=== PATIENT | female | born 1970 | race African-American/Black ===

== ENCOUNTER 2016-07-05 21:26 | Observation (INO) | payer OTHER ==
[~2016-07-05] VITALS: Ht 172.7 cm; Wt 115.8 kg
[~2016-07-05 21:26] MED LIST: AMLODIPINE BESY10 MG PO; AMLODIPINE BESYL5 MG PO; AMOXICILLIN500 MG PO; ANTIVERT25 MG PO; ASPIR-LOW81 MG PO; ASPIRIN325 MG PO; BACLOFEN10 MG PO; BACTRIM,SEPT1 TABLET PO; DOCUSATE SODIU100 MG PO; ENDOCET 5-3251 EACH PO; HYDROCHLOROTHIA25 MG PO; LO-DOSE ASPIRIN81 M2 PO; LOPRESSOR25 MG PO; LORTAB 5-325 M1 EACH PO; LYRICA75 MG PO; MEDROL DOSEPAK4 MG PO; METOPROLOL SUCC50 MG PO; METOPROLOL TART25 MG PO; MOTRIN600 MG PO; NAPROXEN500 MG PO; NEXIUM 24HR20 MG PO; NORVASC5 MG PO; OXYCODONE HCL5 MG PO; PERCOCET 5/31 TABLET PO; ROXICODONE5 MG PO; TOPROL XL25 MG PO; TYLENOL EXTRA500 MG PO; ULTRAM50 MG PO; VALIUM5 MG PO; VALSARTAN160 MG PO
[2016-07-05 21:57] LABS: HEMATOCRIT 37.3 % (36.0-46.0); MCH 28.5 PG (29.0-34.0); MCV 83.6 FL (83-99); MEAN PLAT.VOLUME 10.8 uM^3 (9.5-12.4); PLATELET COUNT 221 K/uL (156-360); RBC DIS.WIDTH-CV 14.5 % (11.8-14.6); RBC DIS.WIDTH-SD 43.4 % (39-53); RED BLOOD COUNT 4.46 M/uL (3.80-5.20); WHITE BLOOD COUNT 7.8 K/uL (4.1-10.2)
[2016-07-05 22:06] LABS: CHLORIDE 109 mEq/L (99-109); SODIUM 140 mEq/L (136-147)
[2016-07-05 22:07] LABS: GLUCOSE 102 mg/dL (70-99)
[2016-07-05 22:09] LABS: ANION GAP 14 MEQ/L (2-14)
[2016-07-05 22:11] LABS: GFR ESTIMATE (CALCULATED) > 59 mL/min/
[2016-07-05 22:12] LABS: UREA NITROGEN (BUN) 12 mg/dL (9-23)
[2016-07-05 22:19] LABS: TROP-I INTERPRETATION NEGATIVE; TROPONIN-I < 0.01 ng/mL (0.0-0.30)
[2016-07-05 23:53] LABS: TOTAL BILIRUBIN 0.5 mg/dL (0.0-1.0)
[2016-07-05 23:54] LABS: ALKALINE PHOSPHATASE 74 IU/L (3-129)
[2016-07-05 23:54] LABS: D-DIMER ELISA 0.54 mg/L FEU (< 0.57)
[2016-07-05 23:57] LABS: DIRECT BILIRUBIN 0.2 mg/dL (0.0-0.3)
[2016-07-05 23:58] LABS: LIPASE 31 U/L (1.0-51.0)
[2016-07-06] MEDS ORDERED: ADVIL200 MG PO (00:26)
[2016-07-06 07:15] LABS: HEMATOCRIT 33.7 % (36.0-46.0); MCH 28.5 PG (29.0-34.0); MCHC 34.1 G/DL (30.0-36.0); MCV 83.4 FL (83-99); MEAN PLAT.VOLUME 10.2 uM^3 (9.5-12.4); PLATELET COUNT 215 K/uL (156-360); RBC DIS.WIDTH-CV 14.6 % (11.8-14.6); RED BLOOD COUNT 4.04 M/uL (3.80-5.20); WHITE BLOOD COUNT 7.3 K/uL (4.1-10.2)
[2016-07-06 07:25] LABS: CHLORIDE 112 mEq/L (99-109); POTASSIUM 3.8 mEq/L (3.7-5.4); SODIUM 143 mEq/L (136-147)
[2016-07-06 07:28] LABS: ANION GAP 11 MEQ/L (2-14)
[2016-07-06 07:30] LABS: ALKALINE PHOSPHATASE 60 IU/L (3-129); GLUCOSE 166 mg/dL (70-99); TOTAL BILIRUBIN 0.3 mg/dL (0.0-1.0)
[2016-07-06 07:31] LABS: GFR ESTIMATE (CALCULATED) > 59 mL/min/
[2016-07-06 07:32] LABS: UREA NITROGEN (BUN) 14 mg/dL (9-23)
[2016-07-06 07:35] LABS: TROP-I INTERPRETATION NEGATIVE; TROPONIN-I 0.01 ng/mL (0.0-0.30)
[2016-07-06 15:45] VITALS: BP 178/103
[2016-07-06 20:42] VITALS: BP 175/95
[2016-07-07 00:25] VITALS: BP 165/76
[2016-07-07 04:00] VITALS: BP 153/77
[2016-07-07 06:29] LABS: HDL CHOLESTEROL 51 MG/DL (Desirable>=50); LDL CHOLESTEROL 114 mg/dL (Desirable<100); NON-HDL CHOLESTEROL 124 mg/dL (Desirable<160); TOTAL CHOLESTEROL 175 mg/dL (Desirable<200); TRIGLYCERIDES 50 MG/DL (Normal: <150)
[2016-07-07 06:45] LABS: TROP-I INTERPRETATION NEGATIVE; TROPONIN-I < 0.01 ng/mL (0.0-0.30)
[2016-07-07 07:58] VITALS: BP 161/81
[2016-07-07 12:01] VITALS: BP 174/95
[2016-07-07 12:48] LABS: TROP-I INTERPRETATION NEGATIVE; TROPONIN-I < 0.01 ng/mL (0.0-0.30)
[2016-07-07 22:08] VITALS: BP 137/71
[2016-07-07 23:11] VITALS: BP 137/71; BP 164/89
[2016-07-08 03:20] VITALS: BP 129/67
[2016-07-08 09:15] VITALS: BP 128/75
[2016-07-08 11:30] VITALS: BP 146/71
[2016-07-08] MEDS ORDERED: PROTONIX40 MG PO (11:37)
[2016-07-08] MEDS ORDERED: TYLENOL REGULA325 MG PO (11:40)
[2016-07-08] MEDS ORDERED: METOPROLOL TART75 MG PO (11:40)
[2016-07-08] MEDS ORDERED: NICOTINE PATCH1 EAC2 TD (11:40)
[2016-07-08] MEDS ORDERED: ASPIR-LOW81 MG PO (11:40)
== END 2016-07-08 18:20 | disposition home or self-care (01) ==
LOC: EME 21:26 → EDOF 07-06 00:23 → 5WEST 07-06 00:23 → 4EAST 07-07 21:37
PROVIDERS: Internal Medicine; Nurse Practitioner Adult Health; Physician Assistant Medical
DX: R07.9 Chest pain, unspecified (principal); R94.31 Abnormal electrocardiogram [ECG] [EKG]; I10 Essential (primary) hypertension; F17.200 Nicotine dependence, unspecified, uncomplicated; Z86.73 Personal history of transient ischemic attack (TIA), and cerebral infarction without residual deficits; K21.9 Gastro-esophageal reflux disease without esophagitis; K80.20 Calculus of gallbladder without cholecystitis without obstruction; G43.909 Migraine, unspecified, not intractable, without status migrainosus; M51.36 Other intervertebral disc degeneration, lumbar region; M50.30 Other cervical disc degeneration, unspecified cervical region; G89.29 Other chronic pain; Z82.3 Family history of stroke; Z88.5 Allergy status to narcotic agent; Z88.8 Allergy status to other drugs, medicaments and biological substances; Z91.018 Allergy to other foods
CPT/HCPCS: 71020; 71275; 80048; 80053; 80061; 80076; 83690; 84484; 85027; 85379; 93005; 94799; 99281; 99285; C1769; C1887; G0378; J0360; J1200; J1644; J1885; J2250; J2765; J2930; J3010; J7030; J7040; J7050; S0028

== ENCOUNTER 2016-09-06 20:27 | Emergency (ER) | payer OTHER ==
[~2016-09-06] VITALS: Ht 172.7 cm; Wt 117.6 kg
[~2016-09-06 20:27] MED LIST changes: +ADVIL200 MG PO; +METOPROLOL TART75 MG PO; +NICOTINE PATCH1 EAC2 TD; +PROTONIX40 MG PO; +TYLENOL REGULA325 MG PO
[2016-09-06 21:02] LABS: HEMATOCRIT 36.8 % (36.0-46.0); MCH 27.8 PG (29.0-34.0); MCHC 32.6 G/DL (30.0-36.0); MCV 85.2 FL (83-99); MEAN PLAT.VOLUME 10.4 uM^3 (9.5-12.4); PLATELET COUNT 225 K/uL (156-360); RBC DIS.WIDTH-CV 14.6 % (11.8-14.6); RED BLOOD COUNT 4.32 M/uL (3.80-5.20); WHITE BLOOD COUNT 7.9 K/uL (4.1-10.2)
[2016-09-06 21:10] LABS: CHLORIDE 112 mEq/L (99-109); POTASSIUM 3.7 mEq/L (3.7-5.4); SODIUM 141 mEq/L (136-147)
[2016-09-06 21:13] LABS: GLUCOSE 106 mg/dL (70-99)
[2016-09-06 21:14] LABS: ANION GAP 11 MEQ/L (2-14)
[2016-09-06 21:15] LABS: TOTAL BILIRUBIN 0.3 mg/dL (0.0-1.0)
[2016-09-06 21:16] LABS: ALKALINE PHOSPHATASE 63 IU/L (3-129); GFR ESTIMATE (CALCULATED) > 59 mL/min/
[2016-09-06 21:18] LABS: UREA NITROGEN (BUN) 16 mg/dL (9-23)
[2016-09-06 21:26] LABS: QUANTITATIVE HCG < 4.0 MIU/ML
[2016-09-06 22:35] LABS: ADD MIUA? YES; BILIRUBIN NEGATIVE; BLOOD NEGATIVE; COLOR YELLOW ((YELLOW)); GLUCOSE (STRIP) NEGATIVE; KETONES NEGATIVE; LEUKOCYTES NEGATIVE; NITRITE NEGATIVE; PROTEIN (STRIP) 30; SPECIFIC GRAVITY 1.016 (1.000-1.030); UROBILINOGEN 0.2 MG/DL (0.2-1.0)
[2016-09-06 22:43] LABS: BACTERIA NONE SEEN /HPF; EPITHELIAL CELLS 2+ /HPF; MUCUS TRACE /LPF; RED BLOOD CELLS 0-5 /HPF (0-5); UCUL ADDED? NO; WHITE BLOOD CELLS 0-5 /HPF (0-5)
[2016-09-06] MEDS ORDERED: PERCOCET 5/31 TABLET PO (23:38)
[2016-09-07 00:52] VITALS: BP 189/99
== END 2016-09-07 00:54 | disposition home or self-care (01) ==
LOC: EME → EDBD 20:27 → EME 20:27
DX: R10.30 Lower abdominal pain, unspecified (principal); I10 Essential (primary) hypertension; Z87.442 Personal history of urinary calculi; K21.9 Gastro-esophageal reflux disease without esophagitis; Z86.73 Personal history of transient ischemic attack (TIA), and cerebral infarction without residual deficits; F17.200 Nicotine dependence, unspecified, uncomplicated
CPT/HCPCS: 74177; 80053; 81003; 84702; 85027; 99281; 99285; J1885

== ENCOUNTER 2016-10-08 12:08 | Observation (INO) | payer OTHER ==
[~2016-10-08] VITALS: Ht 172.7 cm; Wt 118.4 kg
[2016-10-08 14:27] LABS: HEMATOCRIT 39.8 % (36.0-46.0); MCH 27.4 PG (29.0-34.0); MCHC 31.9 G/DL (30.0-36.0); MEAN PLAT.VOLUME 10.8 uM^3 (9.5-12.4); PLATELET COUNT 223 K/uL (156-360); RBC DIS.WIDTH-CV 14.9 % (11.8-14.6); RBC DIS.WIDTH-SD 46.5 % (39-53); RED BLOOD COUNT 4.63 M/uL (3.80-5.20); WHITE BLOOD COUNT 8.9 K/uL (4.1-10.2)
[2016-10-08 14:33] LABS: CHLORIDE 109 mEq/L (99-109); POTASSIUM 4.1 mEq/L (3.7-5.4); SODIUM 140 mEq/L (136-147)
[2016-10-08 14:36] LABS: GLUCOSE 90 mg/dL (70-99)
[2016-10-08 14:37] LABS: ANION GAP 10 MEQ/L (2-14)
[2016-10-08 14:38] LABS: TOTAL BILIRUBIN 0.4 mg/dL (0.0-1.0)
[2016-10-08 14:39] LABS: ALKALINE PHOSPHATASE 62 IU/L (3-129); GFR ESTIMATE (CALCULATED) > 59 mL/min/
[2016-10-08 14:40] LABS: UREA NITROGEN (BUN) 10 mg/dL (9-23)
[2016-10-08 14:46] LABS: TROP-I INTERPRETATION NEGATIVE; TROPONIN-I < 0.01 ng/mL (0.0-0.30)
[2016-10-08] MEDS ORDERED: METOPROLOL SUC100 MG PO (15:59)
[2016-10-08] MEDS ORDERED: LO-DOSE ASPIRIN81 M2 PO (15:59)
[2016-10-08] MEDS ORDERED: PANTOPRAZOLE SO40 MG PO (16:00)
[2016-10-08 18:03] LABS: ADD MIUA? NO; BILIRUBIN NEGATIVE; BLOOD NEGATIVE; COLOR STRAW ((YELLOW)); GLUCOSE (STRIP) NEGATIVE; KETONES NEGATIVE; LEUKOCYTES NEGATIVE; NITRITE NEGATIVE; PROTEIN (STRIP) NEGATIVE; SPECIFIC GRAVITY 1.013 (1.000-1.030); UROBILINOGEN 0.2 MG/DL (0.2-1.0)
[2016-10-08 19:37] VITALS: BP 162/82
[2016-10-08 20:47] LABS: TROP-I INTERPRETATION NEGATIVE; TROPONIN-I < 0.01 ng/mL (0.0-0.30)
[2016-10-09 00:05] VITALS: BP 128/72
[2016-10-09 02:35] LABS: TROP-I INTERPRETATION NEGATIVE; TROPONIN-I < 0.01 ng/mL (0.0-0.30)
[2016-10-09 04:00] VITALS: BP 144/83
[2016-10-09 10:19] VITALS: BP 128/68
[2016-10-09] MEDS ORDERED: AMLODIPINE BESY10 MG PO (12:00)
[2016-10-09] MEDS ORDERED: VALSARTAN160 MG PO (12:00)
[2016-10-09] MEDS ORDERED: HYDROCHLOROTHIA25 MG PO (12:00)
[2016-10-09] MEDS ORDERED: METOPROLOL SUC100 MG PO (12:00)
[2016-10-09] MEDS ORDERED: LO-DOSE ASPIRIN81 M2 PO (12:00)
[2016-10-09] MEDS ORDERED: PANTOPRAZOLE SO40 MG PO (12:00)
== END 2016-10-09 14:55 | disposition home or self-care (01) ==
LOC: EME 12:08 → 5WEST 17:14 → EDOF 17:14 → 5WEST 19:30
PROVIDERS: Internal Medicine; Nurse Practitioner Family
DX: I16.0 Hypertensive urgency (principal); I10 Essential (primary) hypertension; G89.29 Other chronic pain; G43.909 Migraine, unspecified, not intractable, without status migrainosus; K21.9 Gastro-esophageal reflux disease without esophagitis; F17.200 Nicotine dependence, unspecified, uncomplicated; Z91.14 Patient's other noncompliance with medication regimen; F32.9 Major depressive disorder, single episode, unspecified
CPT/HCPCS: 70450; 80053; 81003; 84484; 85027; 93005; 99281; 99285; G0378; J1650; J1885; J7030

== ENCOUNTER 2016-11-09 20:44 | Observation (INO) | payer OTHER ==
[~2016-11-09] VITALS: Ht 172.7 cm; Wt 116.8 kg
[~2016-11-09 20:44] MED LIST changes: +METOPROLOL SUC100 MG PO; +PANTOPRAZOLE SO40 MG PO
[2016-11-09 22:10] LABS: HEMATOCRIT 41.6 % (36.0-46.0); MCH 27.8 PG (29.0-34.0); MCHC 32.7 G/DL (30.0-36.0); MCV 84.9 FL (83-99); MEAN PLAT.VOLUME 11.5 uM^3 (9.5-12.4); PLATELET COUNT 227 K/uL (156-360); RBC DIS.WIDTH-CV 14.7 % (11.8-14.6); RBC DIS.WIDTH-SD 45.9 % (39-53); WHITE BLOOD COUNT 8.9 K/uL (4.1-10.2)
[2016-11-09 22:15] LABS: CHLORIDE 104 mEq/L (99-109); POTASSIUM 3.8 mEq/L (3.7-5.4); SODIUM 134 mEq/L (136-147)
[2016-11-09 22:17] LABS: GLUCOSE 87 mg/dL (70-99)
[2016-11-09 22:19] LABS: ANION GAP 11 MEQ/L (2-14); TOTAL BILIRUBIN 0.3 mg/dL (0.0-1.0)
[2016-11-09 22:21] LABS: ALKALINE PHOSPHATASE 60 IU/L (3-129); GFR ESTIMATE (CALCULATED) > 59 mL/min/
[2016-11-09 22:22] LABS: UREA NITROGEN (BUN) 20 mg/dL (9-23)
[2016-11-09 22:35] LABS: QUANTITATIVE HCG < 4.0 MIU/ML
[2016-11-10 00:30] LABS: LIPASE 54 U/L (1.0-51.0)
[2016-11-10 00:50] LABS: BILIRUBIN NEGATIVE; BLOOD NEGATIVE; COLOR YELLOW ((YELLOW)); GLUCOSE (STRIP) NEGATIVE; KETONES NEGATIVE; LEUKOCYTES NEGATIVE; NITRITE NEGATIVE; PROTEIN (STRIP) NEGATIVE; UROBILINOGEN 0.2 MG/DL (0.2-1.0)
[2016-11-10 01:20] LABS: ADD MIUA? NO; UCUL ADDED? NO
[2016-11-10] MEDS ORDERED: PHENERGAN25 MG PR (01:34)
[2016-11-10] MEDS ORDERED: BENTYL20 MG PO (01:34)
[2016-11-10] MEDS ORDERED: ANTIVERT25 MG PO (01:34)
[2016-11-10] MEDS ORDERED: PROMETHAZINE HC25 M1 PO (01:34)
[2016-11-10 04:18] LABS: TROP-I INTERPRETATION NEGATIVE; TROPONIN-I < 0.01 ng/mL (0.0-0.30)
[2016-11-10 08:48] VITALS: BP 118/56
[2016-11-10 12:22] VITALS: BP 139/78
[2016-11-10] MEDS ORDERED: PROTONIX40 MG PO (15:26)
[2016-11-10] MEDS ORDERED: BIOTIN PLUS KE1 EACH PO (15:27)
[2016-11-10] MEDS ORDERED: LEXAPRO10 MG PO (15:27)
[2016-11-10] MEDS ORDERED: VITAMIN E400 UNIT PO (15:27)
[2016-11-10 15:41] VITALS: BP 158/87
[2016-11-10 20:04] VITALS: BP 147/83
[2016-11-11 00:01] VITALS: BP 116/54
[2016-11-11 04:00] VITALS: BP 136/61
[2016-11-11 08:01] VITALS: BP 155/80
[2016-11-11 11:27] VITALS: BP 140/76
[2016-11-11 15:56] VITALS: BP 134/71
[2016-11-11 19:55] VITALS: BP 144/70
[2016-11-12] VITALS: BP 165/76
[2016-11-12 03:41] VITALS: BP 149/75
[2016-11-12 07:24] VITALS: BP 142/73
[2016-11-12 11:10] VITALS: BP 130/66
[2016-11-12 15:07] VITALS: BP 133/62
[2016-11-12 19:42] VITALS: BP 150/88
[2016-11-13] VITALS (7 sets, daily range): BP systolic 127–167; BP diastolic 64–94
[2016-11-13] MEDS ORDERED: ANTIVERT12.5 MG PO (19:00)
[2016-11-13] MEDS ORDERED: DEXAMETHASONE1 MG PO (19:00)
[2016-11-13] MEDS ORDERED: ONDANSETRON HCL4 MG PO (19:02)
[2016-11-14 04:00] VITALS: BP 133/71
[2016-11-14 07:56] VITALS: BP 144/84
[2016-11-15] MEDS ORDERED: VALIUM5 MG PO (16:05)
[2016-11-15] MEDS ORDERED: NORCO 5/3251 TABLET PO (16:05)
== END 2016-11-14 12:36 | disposition home or self-care (01) ==
LOC: EME 20:44 → RME 20:44 → EDOF 11-10 05:00 → 5SOUTH 11-10 05:00
PROVIDERS: Physician Assistant
DX: R42 Dizziness and giddiness (principal); H93.3X9 Disorders of unspecified acoustic nerve; E86.0 Dehydration; I10 Essential (primary) hypertension; G43.909 Migraine, unspecified, not intractable, without status migrainosus; K21.9 Gastro-esophageal reflux disease without esophagitis; E66.9 Obesity, unspecified; Z68.39 Body mass index [BMI] 39.0-39.9, adult; M54.5 Low back pain; F32.9 Major depressive disorder, single episode, unspecified
CPT/HCPCS: 70450; 70551; 80053; 81003; 83690; 84484; 84702; 85027; 93005; 97530 GP; 99281; 99285; G0378; J1100; J1650; J1885; J2405; J2550; J3360; J7030

== ENCOUNTER 2016-11-15 11:38 | Emergency (ER) | payer OTHER ==
[~2016-11-15] VITALS: Ht 172.7 cm; Wt 118.8 kg
[~2016-11-15 11:38] MED LIST changes: +ANTIVERT12.5 MG PO; +BENTYL20 MG PO; +BIOTIN PLUS KE1 EACH PO; +DEXAMETHASONE1 MG PO; +LEXAPRO10 MG PO; +ONDANSETRON HCL4 MG PO; +PHENERGAN25 MG PR; +PROMETHAZINE HC25 M1 PO; +VITAMIN E400 UNIT PO
[2016-11-15 12:28] LABS: CHLORIDE 110 mEq/L (99-109); EOSINOPHIL (%) 0.9 % (0-5); EOSINOPHIL COUNT 0.1 K/uL (0-0.3); HEMATOCRIT 40.6 % (36.0-46.0); IMMATURE GRANULOCYTE COUNT 0.1 K/uL; INSTRUMENT ABS NEUTROPHIL CT 5.9 K/uL; MCH 27.7 PG (29.0-34.0); MCHC 33.3 G/DL (30.0-36.0); MCV 83.4 FL (83-99); MEAN PLAT.VOLUME 10.5 uM^3 (9.5-12.4); MONOCYTE (%) 7.5 % (3-12); MONOCYTE COUNT 0.9 K/uL (0-0.8); NEUTROPHIL (%) 48.6 % (45-76); NEUTROPHIL COUNT 5.9 K/uL (1.8-6.4); PLATELET COUNT 232 K/uL (156-360); POTASSIUM 3.4 mEq/L (3.7-5.4); RBC DIS.WIDTH-CV 14.6 % (11.8-14.6); RBC DIS.WIDTH-SD 43.8 % (39-53); RED BLOOD COUNT 4.87 M/uL (3.80-5.20); SODIUM 140 mEq/L (136-147)
[2016-11-15 12:30] LABS: GLUCOSE 85 mg/dL (70-99)
[2016-11-15 12:32] LABS: ANION GAP 8 MEQ/L (2-14)
[2016-11-15 12:34] LABS: GFR ESTIMATE (CALCULATED) > 59 mL/min/
[2016-11-15 12:35] LABS: UREA NITROGEN (BUN) 25 mg/dL (9-23)
[2016-11-15 15:54] LABS: ADD MIUA? YES; BILIRUBIN NEGATIVE; BLOOD NEGATIVE; COLOR YELLOW ((YELLOW)); GLUCOSE (STRIP) NEGATIVE; KETONES NEGATIVE; LEUKOCYTES NEGATIVE; NITRITE NEGATIVE; PROTEIN (STRIP) NEGATIVE; SPECIFIC GRAVITY 1.018 (1.000-1.030); UROBILINOGEN 0.2 MG/DL (0.2-1.0)
[2016-11-15 15:59] LABS: BACTERIA RARE /HPF; EPITHELIAL CELLS 2+ /HPF; MUCUS TRACE /LPF; RED BLOOD CELLS 0-5 /HPF (0-5); UCUL ADDED? NO; WHITE BLOOD CELLS 0-5 /HPF (0-5)
[2016-11-15] MEDS ORDERED: NORCO 5/3251 TABLET PO (16:05)
[2016-11-15] MEDS ORDERED: VALIUM5 MG PO (16:05)
[2016-11-15 17:15] VITALS: BP 112/66
== END 2016-11-15 17:31 | disposition home or self-care (01) ==
LOC: EME 11:38
PROVIDERS: Emergency Medicine
DX: M79.605 Pain in left leg (principal); M79.604 Pain in right leg; G89.29 Other chronic pain; R42 Dizziness and giddiness; I10 Essential (primary) hypertension; K21.9 Gastro-esophageal reflux disease without esophagitis; F41.9 Anxiety disorder, unspecified; F32.9 Major depressive disorder, single episode, unspecified; Z91.81 History of falling; Z87.442 Personal history of urinary calculi; Z87.891 Personal history of nicotine dependence; Z86.73 Personal history of transient ischemic attack (TIA), and cerebral infarction without residual deficits
CPT/HCPCS: 80048; 81003; 83735; 85025; 93005; 99281; 99285; J1200; J1885; J2405; J3360; J7040

== ENCOUNTER 2017-07-29 08:21 | Emergency (ER) | payer OTHER ==
[~2017-07-29] VITALS: Ht 172.7 cm; Wt 133.4 kg
[~2017-07-29 08:21] MED LIST changes: +COLACE100 MG PO; +NORCO 5/3251 TABLET PO; +ZOFRAN ODT4 MG PO
[2017-07-29 08:53] LABS: BASOPHIL (%) 0.3 % (0-1); EOSINOPHIL (%) 1.9 % (0-5); EOSINOPHIL COUNT 0.1 K/uL (0-0.3); HEMATOCRIT 38.3 % (36.0-46.0); HEMOGLOBIN 12.6 G/DL (11.9-15.5); IMMATURE GRANULOCYTE (%) 0.1 % (0.0-0.7); LYMPHOCYTE (%) 22.2 % (15-42); LYMPHOCYTE COUNT 1.6 K/uL (1.0-2.8); MCH 28.2 PG (29.0-34.0); MCHC 32.9 G/DL (30.0-36.0); MCV 85.7 FL (83-99); MONOCYTE (%) 7.6 % (3-12); MONOCYTE COUNT 0.6 K/uL (0-0.8); NEUTROPHIL (%) 67.9 % (45-76); NEUTROPHIL COUNT 4.9 K/uL (1.8-6.4); PLATELET COUNT 202 K/uL (156-360); RBC DIS.WIDTH-CV 15.4 % (11.8-14.6); RBC DIS.WIDTH-SD 48.2 % (39-53); RED BLOOD COUNT 4.47 M/uL (3.80-5.20); WHITE BLOOD COUNT 7.2 K/uL (4.1-10.2)
[2017-07-29 09:03] LABS: CHLORIDE 109 mEq/L (99-109); POTASSIUM 3.5 mEq/L (3.7-5.4); SODIUM 139 mEq/L (136-147)
[2017-07-29 09:05] LABS: GLUCOSE 123 mg/dL (70-99)
[2017-07-29 09:09] LABS: CREATININE 0.8 mg/dL (0.6-1.3); GFR ESTIMATE (CALCULATED) > 59 mL/min/; UREA NITROGEN (BUN) 10 mg/dL (9-23)
[2017-07-29 09:58] LABS: APPEARANCE SL.HAZY ((CLEAR)); BILIRUBIN NEGATIVE; BLOOD NEGATIVE; COLOR YELLOW ((YELLOW)); GLUCOSE (STRIP) NEGATIVE; KETONES NEGATIVE; LEUKOCYTES TRACE; NITRITE NEGATIVE; PROTEIN (STRIP) 100; SPECIFIC GRAVITY 1.027 (1.000-1.030)
[2017-07-29 10:03] LABS: BACTERIA NONE SEEN /HPF; CALCIUM OXALATE CRYSTALS 1+ /HPF; EPITHELIAL CELLS 1+ /HPF; MUCUS TRACE /LPF; RED BLOOD CELLS 0-5 /HPF (0-5); UCUL ADDED? NO; WHITE BLOOD CELLS 0-5 /HPF (0-5)
[2017-07-29 10:45] VITALS: BP 176/99
== END 2017-07-29 11:02 | disposition home or self-care (01) ==
LOC: EME 08:21
PROVIDERS: Emergency Medicine
DX: R05 Cough (principal); R06.2 Wheezing; M54.5 Low back pain; R07.9 Chest pain, unspecified; Z86.73 Personal history of transient ischemic attack (TIA), and cerebral infarction without residual deficits; Z87.442 Personal history of urinary calculi; F17.200 Nicotine dependence, unspecified, uncomplicated
CPT/HCPCS: 71046; 80048; 80048 91; 81003; 85025; 87502; 99281; 99284

== ENCOUNTER 2017-09-16 18:09 | Emergency (ER) | payer OTHER ==
[~2017-09-16] VITALS: Ht 172.7 cm; Wt 129.8 kg
[2017-09-16 19:24] LABS: HEMATOCRIT 39.9 % (36.0-46.0); HEMOGLOBIN 13.3 G/DL (11.9-15.5); MCH 28.2 PG (29.0-34.0); MCHC 33.3 G/DL (30.0-36.0); MCV 84.5 FL (83-99); PLATELET COUNT 232 K/uL (156-360); RBC DIS.WIDTH-CV 14.9 % (11.8-14.6); RBC DIS.WIDTH-SD 46.5 % (39-53); RED BLOOD COUNT 4.72 M/uL (3.80-5.20); WHITE BLOOD COUNT 8.7 K/uL (4.1-10.2)
[2017-09-16 19:34] LABS: CHLORIDE 111 mEq/L (99-109); POTASSIUM 3.8 mEq/L (3.7-5.4); SODIUM 141 mEq/L (136-147)
[2017-09-16 19:36] LABS: GLUCOSE 98 mg/dL (70-99)
[2017-09-16 19:40] LABS: CREATININE 1.1 mg/dL (0.6-1.3); GFR ESTIMATE (CALCULATED) > 59 mL/min/
[2017-09-16 19:41] LABS: UREA NITROGEN (BUN) 12 mg/dL (9-23)
[2017-09-16 19:48] LABS: QUANTITATIVE HCG < 4.0 MIU/ML
[2017-09-16 22:52] LABS: APPEARANCE SL.HAZY ((CLEAR)); BILIRUBIN NEGATIVE; BLOOD SMALL; COLOR YELLOW ((YELLOW)); GLUCOSE (STRIP) NEGATIVE; KETONES NEGATIVE; LEUKOCYTES NEGATIVE; NITRITE NEGATIVE; PROTEIN (STRIP) 100; UROBILINOGEN 0.2 MG/DL (0.2-1.0)
[2017-09-16 22:57] LABS: BACTERIA NONE SEEN /HPF; CALCIUM OXALATE CRYSTALS 4+ /HPF; EPITHELIAL CELLS RARE /HPF; MUCUS TRACE /LPF; RED BLOOD CELLS 0-5 /HPF (0-5); WHITE BLOOD CELLS 0-5 /HPF (0-5)
[2017-09-16 23:59] LABS: SOURCE SWAB
[2017-09-17] MEDS ORDERED: NORCO 7.5/321 TABLET PO (00:41)
[2017-09-17] MEDS ORDERED: MOTRIN800 MG PO (00:41)
[2017-09-17 02:11] VITALS: BP 189/99
[2017-09-17 03:42] LABS: CANDIDA DNA PROBE NEGATIVE; GARDNERELLA DNA PROBE POSITIVE; TRICHOMONAS DNA PROBE NEGATIVE
[2017-09-20 12:19] LABS: STOOL OCCULT BLD 1ST SPECIMEN NEGATIVE
== END 2017-09-17 02:12 | disposition home or self-care (01) ==
LOC: EXP 18:09 → EME 18:09 → EXP 09-17 02:12
PROVIDERS: Physician Assistant
DX: N93.8 Other specified abnormal uterine and vaginal bleeding (principal); R10.2 Pelvic and perineal pain; N85.9 Noninflammatory disorder of uterus, unspecified; I10 Essential (primary) hypertension; K21.9 Gastro-esophageal reflux disease without esophagitis; M19.90 Unspecified osteoarthritis, unspecified site; F31.9 Bipolar disorder, unspecified; F17.200 Nicotine dependence, unspecified, uncomplicated; Z86.73 Personal history of transient ischemic attack (TIA), and cerebral infarction without residual deficits; Z87.442 Personal history of urinary calculi; Z90.49 Acquired absence of other specified parts of digestive tract; Z88.5 Allergy status to narcotic agent; Z88.8 Allergy status to other drugs, medicaments and biological substances; Z91.018 Allergy to other foods; J30.81 Allergic rhinitis due to animal (cat) (dog) hair and dander; J30.9 Allergic rhinitis, unspecified
CPT/HCPCS: 74176; 76856; 80048; 81003; 82272; 84702; 85027; 87480; 87491; 87510; 87591; 87660; 99281; 99284; J1885

== ENCOUNTER 2017-10-08 20:21 | Emergency (ER) | payer OTHER ==
[~2017-10-08] VITALS: Ht 172.7 cm; Wt 129.1 kg
[~2017-10-08 20:21] MED LIST changes: +MOTRIN800 MG PO; +NORCO 7.5/321 TABLET PO
[2017-10-08 20:44] LABS: HEMATOCRIT 39.3 % (36.0-46.0); HEMOGLOBIN 12.9 G/DL (11.9-15.5); MCH 28.3 PG (29.0-34.0); MCHC 32.8 G/DL (30.0-36.0); MCV 86.2 FL (83-99); PLATELET COUNT 217 K/uL (156-360); RBC DIS.WIDTH-SD 47.5 % (39-53); RED BLOOD COUNT 4.56 M/uL (3.80-5.20); WHITE BLOOD COUNT 9.1 K/uL (4.1-10.2)
[2017-10-08 20:52] LABS: CHLORIDE 107 mEq/L (99-109); POTASSIUM 3.9 mEq/L (3.7-5.4); SODIUM 139 mEq/L (136-147)
[2017-10-08 20:54] LABS: GLUCOSE 97 mg/dL (70-99)
[2017-10-08 20:58] LABS: CREATININE 1.1 mg/dL (0.6-1.3); GFR ESTIMATE (CALCULATED) > 59 mL/min/
[2017-10-08 20:59] LABS: UREA NITROGEN (BUN) 14 mg/dL (9-23)
[2017-10-08 21:04] LABS: TROP-I INTERPRETATION NEGATIVE; TROPONIN-I 0.01 ng/mL (0.0-0.30)
[2017-10-09 02:52] VITALS: BP 162/102
== END 2017-10-09 02:55 | disposition home or self-care (01) ==
LOC: EME 20:21
DX: I10 Essential (primary) hypertension (principal); Z87.442 Personal history of urinary calculi; K21.9 Gastro-esophageal reflux disease without esophagitis; F41.9 Anxiety disorder, unspecified; F32.9 Major depressive disorder, single episode, unspecified; Z86.73 Personal history of transient ischemic attack (TIA), and cerebral infarction without residual deficits; M19.90 Unspecified osteoarthritis, unspecified site; Z88.5 Allergy status to narcotic agent; F17.200 Nicotine dependence, unspecified, uncomplicated
CPT/HCPCS: 70450; 71046; 80048; 84484; 85027; 93005; 99281; 99285

== ENCOUNTER 2017-10-23 09:45 | Day surgery (SDC) | payer OTHER ==
[~2017-10-23] VITALS: Ht 172.7 cm; Wt 131.1 kg
[~2017-10-23 09:45] MED LIST changes: +ADVIL,NUPRIN,M200 MG PO; +DIOVAN160 MG PO; +NEXIUM20 MG PO; +NORVASC10 MG PO; +TOPROL XL100 MG PO
[2017-10-23 10:10] VITALS: BP 127/74
[2017-10-23 10:32] LABS: BASOPHIL (%) 0.5 % (0-1); EOSINOPHIL (%) 1.7 % (0-5); EOSINOPHIL COUNT 0.2 K/uL (0-0.3); HEMATOCRIT 41.3 % (36.0-46.0); HEMOGLOBIN 13.3 G/DL (11.9-15.5); IMMATURE GRANULOCYTE (%) 0.3 % (0.0-0.7); LYMPHOCYTE (%) 29.9 % (15-42); LYMPHOCYTE COUNT 2.6 K/uL (1.0-2.8); MCH 27.5 PG (29.0-34.0); MCHC 32.2 G/DL (30.0-36.0); MCV 85.5 FL (83-99); MONOCYTE (%) 6.4 % (3-12); MONOCYTE COUNT 0.6 K/uL (0-0.8); NEUTROPHIL (%) 61.2 % (45-76); NEUTROPHIL COUNT 5.4 K/uL (1.8-6.4); PLATELET COUNT 244 K/uL (156-360); RBC DIS.WIDTH-SD 46.8 % (39-53); RED BLOOD COUNT 4.83 M/uL (3.80-5.20); WHITE BLOOD COUNT 8.8 K/uL (4.1-10.2)
[2017-10-23 11:03] LABS: CHLORIDE 106 MEQ/L (99-109); GFR ESTIMATE (CALCULATED) > 59 mL/min/; GLUCOSE 147 mg/dL (70-99); POTASSIUM 3.9 MEQ/L (3.7-5.4); SODIUM 138 MEQ/L (136-147); UREA NITROGEN (BUN) 15 mg/dL (9-23)
[2017-10-23 11:12] LABS: PROLACTIN 15.2 NG/ML
[2017-10-23 13:14] VITALS: BP 143/73
[2017-10-23 14:02] VITALS: BP 143/78
[2017-10-23 16:01] VITALS: BP 130/60
[2017-10-23 16:40] VITALS: BP 144/70
== END 2017-10-23 16:45 | disposition home or self-care (01) ==
LOC: SDC 09:45
PROVIDERS: Obstetrics & Gynecology
DX: N93.9 Abnormal uterine and vaginal bleeding, unspecified (principal); N84.0 Polyp of corpus uteri; I10 Essential (primary) hypertension; Z86.73 Personal history of transient ischemic attack (TIA), and cerebral infarction without residual deficits; F17.200 Nicotine dependence, unspecified, uncomplicated
CPT/HCPCS: 80048; 81025; 84146; 85025; 86850; 86900; 86901; 88305; J1100; J1885; J2250; J2405; J2765; J3010; J7643

== ENCOUNTER 2018-01-29 00:20 | Emergency (ER) | payer OTHER ==
[~2018-01-29] VITALS: Ht 172.7 cm; Wt 85.2 kg
[2018-01-29 00:50] LABS: HEMATOCRIT 37.1 % (36.0-46.0); HEMOGLOBIN 12.4 G/DL (11.9-15.5); MCH 28.6 PG (29.0-34.0); MCHC 33.4 G/DL (30.0-36.0); MCV 85.5 FL (83-99); PLATELET COUNT 232 K/uL (156-360); RBC DIS.WIDTH-CV 14.9 % (11.8-14.6); RBC DIS.WIDTH-SD 46.6 % (39-53); RED BLOOD COUNT 4.34 M/uL (3.80-5.20)
[2018-01-29 01:01] LABS: ALBUMIN 3.9 g/dL (3.2-4.8)
[2018-01-29 01:02] LABS: CHLORIDE 109 mEq/L (99-109); POTASSIUM 3.7 mEq/L (3.7-5.4); SODIUM 140 mEq/L (136-147)
[2018-01-29 01:04] LABS: GLUCOSE 114 mg/dL (70-99); TOTAL PROTEIN 7.6 g/dL (6.4-8.3)
[2018-01-29 01:06] LABS: TOTAL BILIRUBIN 0.4 mg/dL (0.0-1.0)
[2018-01-29 01:07] LABS: ALKALINE PHOSPHATASE 66 IU/L (3-129)
[2018-01-29 01:08] LABS: GFR ESTIMATE (CALCULATED) > 59 mL/min/
[2018-01-29 01:09] LABS: AST (GOT) 16 IU/L (2-34); UREA NITROGEN (BUN) 17 mg/dL (9-23)
[2018-01-29 01:10] LABS: ALT (GPT) 13 IU/L (3-49)
[2018-01-29 01:11] LABS: LIPASE 41 U/L (1.0-51.0)
[2018-01-29 01:16] LABS: QUANTITATIVE HCG < 4.0 MIU/ML
[2018-01-29 02:00] LABS: SOURCE SWAB
[2018-01-29] MEDS ORDERED: PERCOCET 5/31 TABLET PO (02:12)
[2018-01-29 02:49] VITALS: BP 140/86
== END 2018-01-29 03:46 | disposition home or self-care (01) ==
LOC: EME 00:20
PROVIDERS: Emergency Medicine
DX: N93.8 Other specified abnormal uterine and vaginal bleeding (principal); D25.9 Leiomyoma of uterus, unspecified; F41.9 Anxiety disorder, unspecified; Z86.73 Personal history of transient ischemic attack (TIA), and cerebral infarction without residual deficits; Z90.49 Acquired absence of other specified parts of digestive tract; Z87.442 Personal history of urinary calculi; Z88.5 Allergy status to narcotic agent; F17.200 Nicotine dependence, unspecified, uncomplicated
CPT/HCPCS: 80053; 81003; 83690; 84702; 85027; 87210; 87491; 87591; 99281; 99285; J0696; J1885; J2405; J3010

== ENCOUNTER 2018-02-01 06:51 | Inpatient (IN) | payer OTHER ==
[~2018-02-01] VITALS: Ht 172.7 cm; Wt 129.9 kg
[2018-02-01 07:18] LABS: BASOPHIL (%) 0.3 % (0-1); EOSINOPHIL (%) 1.4 % (0-5); EOSINOPHIL COUNT 0.1 K/uL (0-0.3); HEMATOCRIT 39.7 % (36.0-46.0); HEMOGLOBIN 12.9 G/DL (11.9-15.5); IMMATURE GRANULOCYTE (%) 0.3 % (0.0-0.7); LYMPHOCYTE (%) 32.4 % (15-42); LYMPHOCYTE COUNT 3.3 K/uL (1.0-2.8); MCH 27.8 PG (29.0-34.0); MCHC 32.5 G/DL (30.0-36.0); MCV 85.6 FL (83-99); MONOCYTE COUNT 0.6 K/uL (0-0.8); NEUTROPHIL (%) 59.6 % (45-76); PLATELET COUNT 262 K/uL (156-360); RBC DIS.WIDTH-CV 14.8 % (11.8-14.6); RBC DIS.WIDTH-SD 47.1 % (39-53); RED BLOOD COUNT 4.64 M/uL (3.80-5.20); WHITE BLOOD COUNT 10.1 K/uL (4.1-10.2)
[2018-02-01] MEDS ORDERED: ASPIR 8181 M1 PO (07:25)
[2018-02-01 07:49] LABS: CHLORIDE 104 MEQ/L (99-109); SODIUM 137 MEQ/L (136-147)
[2018-02-01 07:55] LABS: GFR ESTIMATE (CALCULATED) > 59 mL/min/; GLUCOSE 119 mg/dL (70-99); UREA NITROGEN (BUN) 14 mg/dL (9-23)
[2018-02-01 08:02] VITALS: BP 140/87
[2018-02-01 08:17] LABS: QUANTITATIVE HCG < 4.0 MIU/ML
[2018-02-01 16:19] VITALS: BP 174/85
[2018-02-01 23:46] VITALS: BP 150/77
[2018-02-02] VITALS (7 sets, daily range): BP systolic 115–157; BP diastolic 57–89
[2018-02-02 06:43] LABS: BASOPHIL (%) 0.1 % (0-1); EOSINOPHIL (%) 0.4 % (0-5); EOSINOPHIL COUNT 0.1 K/uL (0-0.3); HEMATOCRIT 35.5 % (36.0-46.0); HEMOGLOBIN 11.6 G/DL (11.9-15.5); IMMATURE GRANULOCYTE (%) 0.4 % (0.0-0.7); LYMPHOCYTE (%) 16.4 % (15-42); LYMPHOCYTE COUNT 2.2 K/uL (1.0-2.8); MCHC 32.7 G/DL (30.0-36.0); MCV 85.5 FL (83-99); MONOCYTE (%) 7.8 % (3-12); MONOCYTE COUNT 1.1 K/uL (0-0.8); NEUTROPHIL (%) 74.9 % (45-76); NEUTROPHIL COUNT 10.2 K/uL (1.8-6.4); PLATELET COUNT 202 K/uL (156-360); RBC DIS.WIDTH-CV 14.8 % (11.8-14.6); RBC DIS.WIDTH-SD 46.7 % (39-53); RED BLOOD COUNT 4.15 M/uL (3.80-5.20); WHITE BLOOD COUNT 13.6 K/uL (4.1-10.2)
[2018-02-03 03:55] VITALS: BP 143/78
[2018-02-03 07:04] LABS: HEMATOCRIT 36.9 % (36.0-46.0); HEMOGLOBIN 11.8 G/DL (11.9-15.5); MCH 27.8 PG (29.0-34.0); MCV 86.8 FL (83-99); PLATELET COUNT 196 K/uL (156-360); RBC DIS.WIDTH-SD 47.7 % (39-53); RED BLOOD COUNT 4.25 M/uL (3.80-5.20); WHITE BLOOD COUNT 9.2 K/uL (4.1-10.2)
[2018-02-03 07:34] VITALS: BP 141/82
[2018-02-03] MEDS ORDERED: ENDOCET 5-3251 EACH PO (08:58)
[2018-02-03] MEDS ORDERED: MOTRIN600 MG PO (08:58)
== END 2018-02-03 14:10 | disposition home or self-care (01) | DRG 742 ==
LOC: SDC 06:51 → 2SOUTH 12:29 → 2EAST 12:29 → ENRESERV 12:31 → 2EAST 16:06
PROVIDERS: Obstetrics & Gynecology
PROC: 0TJB8ZZ Inspection of Bladder, Via Natural or Artificial Opening Endoscopic (ICD-10-PCS; principal; 2018-02-01)
PROC: 0UT9FZZ Resection of Uterus, Via Natural or Artificial Opening With Percutaneous Endoscopic Assistance (ICD-10-PCS; principal; 2018-02-01)
PROC: 0UT7FZZ Resection of Bilateral Fallopian Tubes, Via Natural or Artificial Opening With Percutaneous Endoscopic Assistance (ICD-10-PCS; principal; 2018-02-01)
DX: N89.5 Stricture and atresia of vagina (principal); Z68.41 Body mass index [BMI] 40.0-44.9, adult; J98.11 Atelectasis; F33.9 Major depressive disorder, recurrent, unspecified; N93.8 Other specified abnormal uterine and vaginal bleeding; E66.01 Morbid (severe) obesity due to excess calories; R50.82 Postprocedural fever; E78.2 Mixed hyperlipidemia; I11.9 Hypertensive heart disease without heart failure; F17.210 Nicotine dependence, cigarettes, uncomplicated; F41.9 Anxiety disorder, unspecified; J30.9 Allergic rhinitis, unspecified; Z98.51 Tubal ligation status; Z88.5 Allergy status to narcotic agent; Z98.1 Arthrodesis status; Z80.6 Family history of leukemia; Z83.3 Family history of diabetes mellitus; Z82.3 Family history of stroke
CPT/HCPCS: 71045; 80048; 84702; 85025; 85027; 86850; 86900; 86901; 87086; 88302; 88307; G0378; J0131; J0330; J0690; J1170; J1200; J1885; J2250; J2270; J2405; J2550; J2710; J2765; J3010; J7120; J7643; Q0175